=== PATIENT | female | born 1965 | race Caucasian/White ===

== ENCOUNTER 2017-10-09 11:45 | Outpatient (CLI) | payer MEDICARE | END 2017-10-09 11:46 | disposition home or self-care (01) | LOC: BICMAMMO 11:45 | PROVIDERS: ATTEND Family Medicine | DX: Z12.31 Encounter for screening mammogram for malignant neoplasm of breast (principal) | CPT/HCPCS: 77063; 77067 ==

== ENCOUNTER 2017-10-11 16:14 | Inpatient (IN) | payer MEDICARE ==
[2017-10-11] MEDS ORDERED: HYDROcodone/Acetaminophen 7.5/325 mg Tablet ONE (17:38)
[2017-10-11] MEDS ORDERED: Albuterol Sulfate 2.5 mg/3 ml Neb ONE (17:40)
--- NOTE | 2017-10-11 19:22 | CT ---
CT ANGIOGRAM OF THE CHEST 10/11/17 HISTORY: Chest pain. Cough and fever. COMPARISON: None. TECHNIQUE: CT angiogram of the chest is performed in the axial plane. Three dimensional reformatted images are s ubmitted for interpretation. FINDINGS: Ascending thoracic aorta is mildly prominent measuring 4.3 x 4.0 cm. No periaortic fat stranding. No mediastinal mass, lymphadenopathy or hematoma. Normal heart size. No significant pericardial fluid. T he visualized solid organs are unremarkable. There are patchy interstitial and ground glass opacities throughout the lung parenchyma. More focal c onsolidation involving the left lower lobe and right lower lobe are noted which may represent subsegm ental atelectasis or possible pneumonia. There is no pleural effusion or pneumothorax. Trachea and ce ntral bronchi are patent. There are no lytic or blastic lesions with regard to the osseous structures. Adequate contrast opacification of the pulmonary arterial system to the level of segmental arteries. No filling defect to suggest thromboembolism. IMPRESSION: 1. No evidence of pulmonary artery embolism to the level of the segmental arteries. 2. Patchy ground glass opacities as well as more focal consolidation throughout the lung parench yma. Correlate for infection/pneumonia versus component of volume overload. Continued surveillance to ensure resolution is recommended. POS: [facility]
[2017-10-11] MEDS ORDERED: Ondansetron HCl/PF 4 MG/2 ML Vial IVP PRN (20:19)
[2017-10-11] MEDS ORDERED: Ondansetron ODT 4 MG TAB SL PRN (20:19)
[2017-10-11] MEDS ORDERED: Acetaminophen 325 MG TAB PO PRN (20:24)
[2017-10-11] MEDS ORDERED: Albuterol Sulfate 2.5 mg/3 ml Neb NEB PRN (20:29)
[2017-10-11] MEDS ORDERED: cefTRIAXone\\ROCEPHIN 2 GM in Sodium Chloride 0.9% 100 ML IVPB SCH (21:00)
[2017-10-11] MEDS ORDERED: Azithromycin 500 MG in Sodium Chloride 0.9% 250 ML 250 ML IVPB SCH (21:30)
[2017-10-11] MEDS: Famotidine/PF 20 mg/2ml Vial SLOW IVP SCH (21:51)
[2017-10-11] MEDS: guaiFENesin ER 600 MG TAB PO SCH (21:51)
[2017-10-11] MEDS: Guaifenesin DM 100-10/5 ML UDCUP PO PRN (21:51)
[2017-10-11] MEDS: Sodium Chloride 0.9% 1,000 ML IV SCH (21:52)
[2017-10-11 22:22] VITALS: BMI 27.2
[2017-10-11] MEDS ORDERED: tiZANidine HCl 4 MG TAB PO SCH (22:45)
[2017-10-11] MEDS ORDERED: Diazepam 2 MG TAB PO SCH (22:45)
[2017-10-12] MEDS: HYDROcodone/Acetaminophen 5/325 mg Tablet PO PRN ×3 (04:18→17:49)
[2017-10-12 05:45] LABS: #Lymphocytes 1.7 thou/uL (1.20-3.40); #Monocytes 0.9 thou/uL (0.11-0.59); #Neutrophils 10.5 thou/uL (1.40-6.50); %Basophils 0.1 % (0.0-1.0); %Eosinophils 0.1 % (0.0-10.0); %Lymphocytes 12.6 % (21.0-51.0); %Monocytes 7.2 % (0.0-10.0); Hemoglobin 13.7 g/dL (12.0-16.0); Mean Corpuscular HGB CONC 33.9 g/dL (32.0-36.0); Mean Corpuscular Hemoglobin 32.1 pg (27.0-31.0); Mean Corpuscular Volume 94.5 fL (78.0-98.0); Mean Platelet Volume 6.2 fL (7.4-10.4); Platelet Count 307 thou/uL (130-400); RBC Distribution Width 11.5 % (11.5-14.5); Red Blood Cell (RBC) Count 4.29 mill/uL (4.20-5.40); White Blood Cell (WBC) Count 13.2 thou/uL (4.8-10.8)
[2017-10-12 05:57] LABS: Anion Gap 9 mmol/L (10-20); BUN (Urea Nitrogen) 6 mg/dL (7.0-18.7); Calc. Creatinine Clearance 118 mL/min (70-130); Calcium 8.6 mg/dL (7.8-10.44); Carbon Dioxide 27 mmol/L (22-29); Chloride 105 mmol/L (98-107); Estimated GFR-MDRD 90; Glucose 115 mg/dL (70-105); Potassium 3.6 mmol/L (3.5-5.1); Sodium 137 mmol/L (136-145)
[2017-10-12] MEDS ORDERED: Oxymetazoline HCl 0.05% ( 15 ML ) NASAL PRN (08:08)
--- NOTE | 2017-10-12 08:51 | HP ---
DATE OF ADMISSION: 10/11/2017 The patient was seen on 10/11/2017 CHIEF COMPLAINT: Shortness of breath. HISTORY OF PRESENT ILLNESS: This is a 51-year-old white female who has a known history of chronic br onchitis and she has named diagnosis of COPD by herself. She has never seen any waiter/waitress captain or had any pulmonary function testing. She uses a lot of herbal medicines and essential oils for controlli ng her bronchitis. The patient had symptoms started a week ago with shortness of breath, cough with productive sputum and nasal congestion. She has been using essential oils, which according to her wa s not working and she had a fever of 102 a week ago following which she had epistaxis and also she wa s coughing up green sputum sometimes associated with blood, so her advised the patient to go to the ER. The patient came to the ER, she had a thorough evaluation, had a CT of the chest with sydney picion for pulmonary embolism as she was having hypoxia at 4 liters. CTA was negative, but showed si gnificant patchy infiltrates bilaterally and has ground glass opacities throughout the lung parenchym a. The patient denies having any chest pain. No nausea, no vomiting, no diarrhea, no constipation. No history of any sick contacts. PAST MEDICAL HISTORY: 1. Multiple allergies. 2. Chronic bronchitis. 3. History of pneumonia, multiple times. 4. History of COPD, which she termed herself. PAST SURGICAL HISTORY: None. SOCIAL HISTORY: The patient has a history of smoking, but she has stopped smoking 13 years ago. She occasionally smokes socially according to her. No history of alcohol, no history of illicit drug us e. FAMILY HISTORY: No significant family history of coronary artery disease. Her paternal grandfather at young age around 30 with some lung disorder, which she is not aware of. ALLERGIES: ASPIRIN, MOLD, NEUROMUSCULAR BLOCKERS and STEROIDS. HOME MEDICATIONS: The patient is on diazepam 2 mg p.o. b.i.d. and Tizanidine 4 mg p.o. t.i.d. REVIEW OF SYSTEMS: All 12 systems are reviewed with the patient thoroughly and found to be negative at this time. Systems reviewed are HEENT, CVS, PAINT PREP TECHNICIAN, respiratory, GI, , musculoskeletal, skin and i ntegumentary, psychiatric. PHYSICAL EXAMINATION: PSYCHIATRIC: The patient has severe anxiety disorder and she has been crying a lot while talking, bu t otherwise no suicidal ideation, no francisco was noted. LABORATORY DATA: WBC 13.2, hemoglobin is 13.7, hematocrit is 40.5, platelets 307. Sodium 137, potas sium is 3.6, chloride is 105, BUN is 6, creatinine 0.69. IMAGING: CT of the chest was showing an evidence of patchy opacities, ground glass appearance bilate rally throughout the parenchyma, but otherwise no evidence of any PE was noted. ASSESSMENT: 1. Acute chronic bronchitis. 2. Acute hypoxic respiratory failure. 3. Acute bilateral pneumonia. 4. Anxiety disorder. PLAN: 1. Plan is to closely monitor this patient. We will start the patient on empiric antibiotic with Le vofloxacin 750 mg IV daily. We will get the sputum cultures and blood cultures at this time and star t the patient on albuterol nebulizer treatments every 2 hours and DuoNeb every 4 hours as scheduled. Plan to consult Pulmonary as the patient has a lot of pulmonary symptoms and she calls them a COPD w ith no evidence of any pulmonary function testing in the past. Her smoking history has also been destinee y small, at least 10-15 years. She quit smoking 13 years ago. 2. The patient had a normal BNP. There is no evidence of any congestive heart failure. We will get a 2D echo. 3. Patient has severe anxiety disorder. She takes Valium. We will continue with the Valium twice a day. 4. Deep venous thrombosis prophylaxis. Lovenox 40 mg subcu daily. I spent 75 minutes with this patient.
[2017-10-12] MEDS: guaiFENesin ER 600 MG TAB PO SCH ×2 (09:25→20:41)
[2017-10-12] MEDS: Enoxaparin Sodium 40 MG/0.4 ML SYRINGE SC SCH (09:25)
[2017-10-12] MEDS: tiZANidine HCl 4 MG TAB PO SCH ×3 (09:25→20:42)
[2017-10-12] MEDS: Diazepam 2 MG TAB PO SCH ×2 (09:25→20:41)
[2017-10-12] MEDS: Famotidine/PF 20 mg/2ml Vial SLOW IVP SCH ×2 (09:25→21:04)
[2017-10-12] MEDS: Fluticasone Propionate Nasal Spray 16 gm Bottle NASAL SCH ×2 (09:41→20:40)
[2017-10-12] MEDS: Sodium Chloride 0.9% 1,000 ML IV SCH ×2 (09:41→11:52)
--- NOTE | 2017-10-12 14:41 | PDOC.PN ---
- Subjective Encounter Start Date: 10/12/17 Encounter Start Time: 13:00 Patient is seen today, alert and oriented, She feels is getting better, She still stuffed up, very emotional, with high level of anxiety. - Objective Resuscitation Status: Resuscitation Status FULL:Full Resuscitation MAR Reviewed: Yes Vital Signs & Weight: Vital Signs (12 hours) Temp Pulse Pulse Resp BP BP BP 10/12/17 12:00 98.3 F 84 20 131/79 10/12/17 11:07 116/85 10/12/17 10:38 85 16 10/12/17 10:10 101 H 156/62 H 10/12/17 08:00 98.9 F 87 20 10/12/17 06:35 10/12/17 06:33 95 18 10/12/17 04:00 97.9 F 84 14 141/94 H Pulse Ox 10/12/17 12:00 95 10/12/17 11:07 10/12/17 10:38 95 10/12/17 10:10 10/12/17 08:00 94 L 10/12/17 06:35 96 10/12/17 06:33 96 10/12/17 04:00 96 I&O: 10/11/17 10/12/17 10/13/17 06:59 06:59 06:59 Intake Total 990 360 Output Total 550 Balance 440 360 Result Diagrams: 10/12/17 05:16 10/12/17 05:16 Radiology Reviewed by me: Yes Phys Exam - Physical Examination HEENT: PERRLA, moist MMs Neck: no nodes, no JVD Respiratory: no rales, wheezing present lower base fine rales present bilaterally Cardiovascular: RRR, no significant murmur Gastrointestinal: soft, non-tender Musculoskeletal: no edema, pulses present Neurological: non-focal, normal sensation Lymphatic: no nodes Psychiatric: normal affect, A&O x 3 Dx/Plan (1) Pneumonia Code(s): J18.9 - PNEUMONIA, UNSPECIFIED ORGANISM Status: Acute Comment: Elevated WBC, will continue with levaquine, pt is improving with nebs , she continuos to be on oxygen. Consulted Dr. Heredia, (2) Acute respiratory failure with hypoxia Code(s): J96.01 - ACUTE RESPIRATORY FAILURE WITH HYPOXIA Status: Acute Comment: Pt says she has COPD was never diagosed with PFT, pt has a short smoking historty, likely she has Chronci bronchitis/bronchiolitis with recurrent Pneumonias as 3 yeard Old. She is oxygen depnedent now with possible viral/ bactrial pneumonia (3) Acute sinusitis, unspecified Code(s): J01.90 - ACUTE SINUSITIS, UNSPECIFIED Status: Acute Comment: Imprpoving with nasonex and Afrin. (4) Anxiety Code(s): F41.9 - ANXIETY DISORDER, UNSPECIFIED Status: Acute Comment: Pt is on Valium BID, will continue. - Plan cont current plan of care, continue antibiotics, PT/OT, respiratory therapy, incentive spirometry, out of bed/ambulate, DVT proph w/lovenox * . Review of Systems - Review of Systems Constitutional: negative: fever, chills, sweats, weakness, malaise, other Eyes: negative: Pain, Vision Change, Conjunctivae Inflammation, Eyelid Inflammation, Redness, Other ENT: negative: Ear Pain, Ear Discharge, Nose Pain, Nose Discharge, Nose Congestion, Mouth Pain, Mouth Swelling, Throat Pain, Throat Swelling, Other Respiratory: negative: Cough, Dry, Shortness of Breath, Hemoptysis, SOB with Excertion, Pleuritic Pain, Sputum, Wheezing Cardiovascular: negative: chest pain, palpitations, orthopnea, paroxysmal nocturnal dyspnea, edema, light headedness, other Gastrointestinal: negative: Nausea, Vomiting, Abdominal Pain, Diarrhea, Constipation, Melena, Hematochezia, Other Genitourinary: negative: Dysuria, Frequency, Incontinence, Hematuria, Retention , Other - Medications/Allergies Allergies/Adverse Reactions: Allergies Allergy/AdvReac Type Severity Reaction Status Date / Time aspirin Allergy Verified 10/11/17 20:11 mold Allergy Verified 10/11/17 22:07 Neuromuscular Blockers, Allergy Verified 10/11/17 20:17 Steroidal NSAIDS (Non-Steroidal Allergy Verified 10/11/17 22:07 Anti-Inflamma Medications: Current Medications Acetaminophen (Tylenol) 650 mg PO Q4H PRN PRN Reason: Headache/Fever or Pain Hydrocodone Bitart/Acetaminophen ([place] 5/325) 1 tab PO Q4H PRN PRN Reason: Moderate Pain (4-6) Last Admin: 10/12/17 11:48 Dose: 1 tab Albuterol Sulfate (Ventolin) 2.5 mg NEB Q2H PRN PRN Reason: Wheezing Albuterol/Ipratropium (Duoneb) 3 ml NEB [id number] [facility] Last Admin: 10/12/17 10:38 Dose: 3 ml Diazepam (Valium) 2 mg PO BID [facility] Last Admin: 10/12/17 09:25 Dose: 2 mg Enoxaparin Sodium (Lovenox) 40 mg SC 0900 [facility] Last Admin: 10/12/17 09:25 Dose: 40 mg Famotidine (Pepcid) 20 mg SLOW IVP Q12HR [facility] Last Admin: 10/12/17 09:25 Dose: 20 mg Fluticasone Propionate (Flonase Nasal [place]) 0 gm NASAL BID [facility] Last Admin: 10/12/17 09:41 Dose: 1 spr Guaifenesin (Mucinex) 1,200 mg PO Q12HR [facility] Last Admin: 10/12/17 09:25 Dose: 1,200 mg Guaifenesin/Dextromethorphan (Robitussin Dm) 15 ml PO Q4H PRN PRN Reason: Cough Last Admin: 10/11/17 21:51 Dose: 15 ml Levofloxacin 750 mg/ Device 150 mls @ 100 mls/hr IVPB Q24HR [facility] Last Admin: 10/11/17 21:52 Dose: 150 mls Sodium Chloride (Normal Saline 0.9%) 1,000 mls @ 75 mls/hr IV .[id number] [facility] Last Admin: 10/12/17 11:52 Dose: 1,000 mls Oxymetazoline HCl (Oxymetazoline Hcl) 0 sprays NASAL BID PRN PRN Reason: Nasal Congestion Sodium Chloride (Flush - Normal Saline) 10 ml IVF Q12HR [facility] Last Admin: 10/12/17 09:27 Dose: 10 ml Sodium Chloride (Flush - Normal Saline) 10 ml IVF PRN PRN PRN Reason: Saline Flush Tizanidine HCl (Zanaflex) 4 mg PO TID [facility] Last Admin: 10/12/17 14:19 Dose: 4 mg
[2017-10-12 16:23] LABS: HIV (1/2) Antibody/Antigen Non-Reactive (NonReactive); HIV 1/2 INDEX 0.12 S/CO (<1.00)
[2017-10-12] MEDS: Budesonide 0.5 MG/2 ML NEB INH SCH (18:40)
--- NOTE | 2017-10-12 23:11 | CON ---
DATE OF CONSULTATION: 10/12/2017 Ms. Patiño is a 51-year-old female who has been having breathing difficulty for a couple weeks. She finally came to the hospital and was subsequently admitted. She said she was told many years ago that she had chronic bronchitis, but when I reviewed the definition of chronic bronchitis, she quickly told me that she did not fit that definition. She is a former smoker, but probably did not smoke more than a total of 10 years intermittently. She says she is able to manage her breathing issues normally with aromatherapy. She is really not interested in taking nebulized treatments at home or any inhaled medicines that she had not have to. PAST MEDICAL HISTORY: Remarkable for pneumonia in the past. SOCIAL HISTORY: As mentioned, she quit smoking. She did not use drugs or alcohol. FAMILY HISTORY: Positive for vascular disease. She said she had a great grandfather at a young age with some type of lung disorder. He apparently suddenly. She does not have a diagnosis to go with that event. ALLERGIES: She reports allergies to ASPIRIN, NEUROMUSCULAR BLOCKERS and STEROIDS. Takes tizanidine, Valium at home. REVIEW OF SYSTEMS: 10 point review of systems completed, otherwise negative. PHYSICAL EXAMINATION: GENERAL: 51 year old female complains of difficulty breathing VITAL SIGNS: She is afebrile, heart rate is 91, respiratory rate is 18, oximetry is 95 on room air, blood pressure 156/89. HEENT: Pupils are equal. Sclerae is anicteric. She is wearing sunglasses in the room, says she is light sensitive. NECK: Supple, no lymphadenopathy. LUNGS: Remarkable for diffuse coarse wheezes. HEART: Regular rhythm. S1 and S2 are normal. ABDOMEN: Soft and nontender. EXTREMITIES: Without clubbing, cyanosis, or edema. LABORATORY AND X-RAY FINDINGS: Chest radiograph is normal. Chest CT shows very faint patchy ground glass infiltrates that are very small. IMPRESSION: 1. Asthmatic bronchitis. 2. Abnormal CT, obviously a bronchitis or an infectious process could be responsible for this. I will order an HIV for thoroughness sake and an antineutrophil cytoplasmic antibody panel and a screening antinuclear antibody. I doubt this is a vasculitis. I suspect, she just has asthmatic bronchitis and the CT findings are incidental. I would recommend as I explained to her repeating a CT in 2-3 months without contrast just to make sure she does not have something that is progressive. It is unlikely that her bronchospasm will improve without steroids or nebulizer treatments. I will order inhaled steroids for now since she claims to be allergic to STEROIDS. Hopefully, we will see some improvement over the next few days. This is a 70-minute consult, greater than 50% of the time was spent on unit with coordinating care and reviewing records. PIA
[2017-10-13] MEDS: HYDROcodone/Acetaminophen 5/325 mg Tablet PO PRN ×3 (05:48→18:15)
[2017-10-13] MEDS: Sodium Chloride 0.9% 1,000 ML IV SCH ×2 (05:55→23:16)
[2017-10-13] MEDS: Budesonide 0.5 MG/2 ML NEB INH SCH ×3 (06:44→19:14)
[2017-10-13] MEDS: Famotidine/PF 20 mg/2ml Vial SLOW IVP SCH (09:00)
[2017-10-13] MEDS: tiZANidine HCl 4 MG TAB PO SCH ×3 (09:09→20:15)
[2017-10-13] MEDS: guaiFENesin ER 600 MG TAB PO SCH ×2 (09:09→20:15)
[2017-10-13] MEDS: Guaifenesin DM 100-10/5 ML UDCUP PO PRN (09:10)
[2017-10-13] MEDS: Diazepam 2 MG TAB PO SCH ×2 (09:10→20:15)
[2017-10-13] MEDS: Enoxaparin Sodium 40 MG/0.4 ML SYRINGE SC SCH (09:10)
[2017-10-13] MEDS: Fluticasone Propionate Nasal Spray 16 gm Bottle NASAL SCH ×2 (10:59→20:13)
[2017-10-13] MEDS ORDERED: methylPREDNISolone Sod Succ/PF 125 MG/2 ML VIAL IVP SCH (11:30)
[2017-10-13] MEDS ORDERED: Magnesium Sulfate 3 GM in Sodium Chloride 0.9% 100 ML IVPB SCH (11:30)
[2017-10-13 12:03] LABS: #Basophils 0.1 thou/uL (0.0-0.2); #Lymphocytes 1.8 thou/uL (1.20-3.40); #Monocytes 0.7 thou/uL (0.11-0.59); #Neutrophils 12.4 thou/uL (1.40-6.50); %Basophils 0.4 % (0.0-1.0); %Eosinophils 0.2 % (0.0-10.0); %Lymphocytes 12.1 % (21.0-51.0); %Monocytes 4.7 % (0.0-10.0); %Neutrophils 82.7 % (42.0-75.0); Hemoglobin 14.2 g/dL (12.0-16.0); Mean Corpuscular HGB CONC 33.6 g/dL (32.0-36.0); Mean Corpuscular Hemoglobin 31.7 pg (27.0-31.0); Mean Corpuscular Volume 94.2 fL (78.0-98.0); Mean Platelet Volume 6.5 fL (7.4-10.4); Platelet Count 311 thou/uL (130-400); RBC Distribution Width 11.5 % (11.5-14.5); Red Blood Cell (RBC) Count 4.48 mill/uL (4.20-5.40)
--- NOTE | 2017-10-13 12:15 | PRG ---
DATE OF SERVICE: 10/13/2017 SUBJECTIVE: Lynda Patiño says she feels worse this morning. She had to call for p.r.n. nebulizer tr eatment this morning. She was tearful actually when I saw her. OBJECTIVE: GENERAL: She was not in distress, however. VITAL SIGNS: She is afebrile with a temperature of 99.4, heart rates in the 80s, respiratory rate 16 , oximetry is 93 on 2 liters, blood pressure 158/92. LUNGS: Remarkable for coarse wheezes diffusely. CARDIOVASCULAR: Regular rhythm. ABDOMEN: Soft. LABORATORY DATA: White count 15, hemoglobin 14.2, platelets 311,000. Electrolytes are normal. IMPRESSION: Asthmatic bronchitis. We discussed her reported steroid allergy. She says she turns re d and does not like how she feels on steroids, but did not really have an allergic reaction. I have explained that there is no way around giving her steroids. We will try with 1 dose of 125 mg of Medr ol and 30 g of magnesium. Hopefully, by the end of the day, her bronchospasm is improved.
[2017-10-13 12:22] LABS: Anion Gap 13 mmol/L (10-20); BUN (Urea Nitrogen) 5 mg/dL (7.0-18.7); Calc. Creatinine Clearance 112 mL/min (70-130); Calcium 9.1 mg/dL (7.8-10.44); Carbon Dioxide 24 mmol/L (22-29); Chloride 104 mmol/L (98-107); Estimated GFR-MDRD 84; Glucose 121 mg/dL (70-105); Potassium 3.4 mmol/L (3.5-5.1); Sodium 138 mmol/L (136-145)
--- NOTE | 2017-10-13 15:11 | PDOC.PN ---
- Subjective Encounter Start Date: 10/13/17 Encounter Start Time: 13:00 Patient is seen today, alert and oriented. No other concern snoted. Pt feeling better, worried about Starting her on Inhaled Steroids. - Objective Resuscitation Status: Resuscitation Status FULL:Full Resuscitation MAR Reviewed: Yes Vital Signs & Weight: Vital Signs (12 hours) Temp Pulse Pulse Resp BP BP Pulse Ox 10/13/17 14:21 89 18 95 10/13/17 14:20 85 133/54 L 10/13/17 10:08 72 20 93 L 10/13/17 10:04 72 20 93 L 10/13/17 09:24 99.4 F 85 16 10/13/17 09:16 99.3 F 10/13/17 07:47 99.4 F 85 16 158/92 H 92 L 10/13/17 05:22 98 20 10/13/17 04:00 98.2 F 78 15 147/82 H 94 L Weight Weight 170 lb I&O: 10/12/17 10/13/17 10/14/17 06:59 06:59 06:59 Intake Total 990 1590 Output Total 550 600 Balance 440 990 Result Diagrams: 10/13/17 11:35 10/13/17 11:35 Radiology Reviewed by me: Yes Phys Exam - Physical Examination HEENT: PERRLA, moist MMs Neck: no nodes, no JVD Respiratory: no wheezing, no rales Cardiovascular: RRR, no significant murmur Gastrointestinal: soft, non-tender Musculoskeletal: no edema, pulses present Neurological: non-focal, normal sensation Lymphatic: no nodes Psychiatric: normal affect, A&O x 3 Dx/Plan (1) Pneumonia Code(s): J18.9 - PNEUMONIA, UNSPECIFIED ORGANISM Status: Acute Comment: Elevated WBC, will continue with levaquine, pt is improving with nebs , she continuos to be on oxygen. Consulted Dr. Heredia,ordered Inhaled Steroids, planned Repeat chest xray for any worsein. Josiah is Asthmtic bronchitis per pulmonary. (2) Acute respiratory failure with hypoxia Code(s): J96.01 - ACUTE RESPIRATORY FAILURE WITH HYPOXIA Status: Acute Comment: Some improvement noted, pt is on 2 Liter NC. will cotninue with nebs. (3) Acute sinusitis, unspecified Code(s): J01.90 - ACUTE SINUSITIS, UNSPECIFIED Status: Acute Comment: Imprpoving with nasonex and Afrin. (4) Anxiety Code(s): F41.9 - ANXIETY DISORDER, UNSPECIFIED Status: Acute Comment: Pt is on Valium BID, will continue. - Plan cont current plan of care, continue antibiotics, PT/OT, drug abuse social worker, respiratory therapy, incentive spirometry, DVT proph w/lovenox * . Review of Systems - Review of Systems Eyes: negative: Pain, Vision Change, Conjunctivae Inflammation, Eyelid Inflammation, Redness, Other ENT: negative: Ear Pain, Ear Discharge, Nose Pain, Nose Discharge, Nose Congestion, Mouth Pain, Mouth Swelling, Throat Pain, Throat Swelling, Other Respiratory: Cough, Shortness of Breath, SOB with Excertion, Wheezing. negative : Dry, Hemoptysis, Pleuritic Pain, Sputum Cardiovascular: negative: chest pain, palpitations, orthopnea, paroxysmal nocturnal dyspnea, edema, light headedness, other Gastrointestinal: negative: Nausea, Vomiting, Abdominal Pain, Diarrhea, Constipation, Melena, Hematochezia, Other Musculoskeletal: negative: Neck Pain, Shoulder Pain, Arm Pain, Back Pain, Hand Pain, Leg Pain, Foot Pain, Other - Medications/Allergies Allergies/Adverse Reactions: Allergies Allergy/AdvReac Type Severity Reaction Status Date / Time aspirin Allergy Verified 10/11/17 20:11 mold Allergy Verified 10/11/17 22:07 Neuromuscular Blockers, Allergy Verified 10/11/17 20:17 Steroidal NSAIDS (Non-Steroidal Allergy Verified 10/11/17 22:07 Anti-Inflamma Medications: Current Medications Acetaminophen (Tylenol) 650 mg PO Q4H PRN PRN Reason: Headache/Fever or Pain Hydrocodone Bitart/Acetaminophen ([place] 5/325) 1 tab PO Q4H PRN PRN Reason: Moderate Pain (4-6) Last Admin: 10/13/17 10:57 Dose: 1 tab Albuterol Sulfate (Ventolin) 2.5 mg NEB Q2H PRN PRN Reason: Wheezing Last Admin: 10/13/17 05:22 Dose: 2.5 mg Albuterol/Ipratropium (Duoneb) 3 ml NEB [id number] [facility] Last Admin: 10/13/17 14:21 Dose: 3 ml Budesonide (Pulmicort Neb Solution) 0.5 mg INH BID-RT [facility] Last Admin: 10/13/17 10:08 Dose: 0.5 mg Diazepam (Valium) 2 mg PO BID [facility] Last Admin: 10/13/17 09:10 Dose: 2 mg Enoxaparin Sodium (Lovenox) 40 mg SC 0900 [facility] Last Admin: 10/13/17 09:10 Dose: 40 mg Famotidine (Pepcid) 20 mg SLOW IVP Q12HR [facility] Last Admin: 10/12/17 21:04 Dose: 20 mg Fluticasone Propionate (Flonase Nasal [place]) 0 gm NASAL BID [facility] Last Admin: 10/13/17 10:59 Dose: 2 spr Guaifenesin (Mucinex) 1,200 mg PO Q12HR [facility] Last Admin: 10/13/17 09:09 Dose: 1,200 mg Guaifenesin/Dextromethorphan (Robitussin Dm) 15 ml PO Q4H PRN PRN Reason: Cough Last Admin: 10/13/17 09:10 Dose: 15 ml Levofloxacin 750 mg/ Device 150 mls @ 100 mls/hr IVPB Q24HR [facility] Last Admin: 10/12/17 20:42 Dose: 150 mls Sodium Chloride (Normal Saline 0.9%) 1,000 mls @ 75 mls/hr IV .[id number] [facility] Last Admin: 10/13/17 05:55 Dose: 1,000 mls Oxymetazoline HCl (Oxymetazoline Hcl) 0 sprays NASAL BID PRN PRN Reason: Nasal Congestion Sodium Chloride (Flush - Normal Saline) 10 ml IVF Q12HR [facility] Last Admin: 10/13/17 14:32 Dose: Not Given Sodium Chloride (Flush - Normal Saline) 10 ml IVF PRN PRN PRN Reason: Saline Flush Tizanidine HCl (Zanaflex) 4 mg PO TID [facility] Last Admin: 10/13/17 09:09 Dose: 4 mg
[2017-10-13] MEDS: Famotidine 20 MG TAB PO SCH (20:14)
[2017-10-13 22:24] LABS: ANA Symphony (Qualitative) Negative (Negative); dsDNA IgG Antibody 0.8 IU/mL (<10 Negative)
[2017-10-14] MEDS: Budesonide 0.5 MG/2 ML NEB INH SCH ×2 (06:30→18:45)
[2017-10-14] MEDS: Diazepam 2 MG TAB PO SCH ×2 (08:11→20:15)
[2017-10-14] MEDS: HYDROcodone/Acetaminophen 5/325 mg Tablet PO PRN ×4 (08:11→22:05)
[2017-10-14] MEDS: Famotidine 20 MG TAB PO SCH ×2 (08:12→20:15)
[2017-10-14] MEDS: guaiFENesin ER 600 MG TAB PO SCH ×2 (08:12→20:14)
[2017-10-14] MEDS: tiZANidine HCl 4 MG TAB PO SCH ×3 (09:18→22:05)
[2017-10-14] MEDS: Enoxaparin Sodium 40 MG/0.4 ML SYRINGE SC SCH (09:18)
[2017-10-14] MEDS: Fluticasone Propionate Nasal Spray 16 gm Bottle NASAL SCH ×2 (09:18→20:15)
[2017-10-14] MEDS: Sodium Chloride 0.9% 1,000 ML IV SCH (12:28)
--- NOTE | 2017-10-14 17:52 | PRG ---
DATE OF SERVICE: 10/14/2017 SUBJECTIVE: This morning she is better. She is less short of breath, no associated coughing or whee zing. OBJECTIVE: VITAL SIGNS: 94%, sating 2 liters, temperature 98, pulse 105, and blood pressure 140/79. CHEST: Bilateral wheezing. CARDIAC: Normal S1 and S2. No gallops. ABDOMEN: Soft. No masses. IMPRESSION: Asthmatic bronchitis, somewhat improved. PLAN: Continue aggressive neb treatments, Symbicort, Dulera, empiric antibiotics. We will follow.
--- NOTE | 2017-10-14 18:39 | PDOC.PN ---
- Subjective Encounter Start Date: 10/14/17 Encounter Start Time: 11:00 Patient seen and examined for respiratory failure. Cough with mild production + . No overnight events - Objective Resuscitation Status: Resuscitation Status FULL:Full Resuscitation MAR Reviewed: Yes Vital Signs & Weight: Vital Signs (12 hours) Temp Pulse Resp BP BP Pulse Ox 10/14/17 15:10 99.1 F 88 18 129/81 93 L 10/14/17 11:45 97.3 F L 90 18 112/68 96 10/14/17 11:23 93 12 10/14/17 09:15 18 147/89 H 10/14/17 08:10 98.7 F 104 H 18 192/93 H 94 L Weight Weight 169 lb 6.4 oz I&O: 10/13/17 10/14/17 10/15/17 06:59 06:59 06:59 Intake Total 1590 Output Total 600 1000 Balance 990 -1000 Result Diagrams: 10/13/17 11:35 10/15/17 05:40 EKG Reviewed by me: Yes (Tele SR) Phys Exam - Physical Examination Constitutional: NAD Respiratory: no rales, no rhonchi, wheezing present (scat) Cardiovascular: RRR, no rub Gastrointestinal: soft, non-tender, positive bowel sounds Musculoskeletal: no edema Neurological: moves all 4 limbs Dx/Plan - Plan DVT proph w/lovenox, DVT proph w/SCDs IMPRESSION: Acute Hypoxic Resp failure Asthmatic Bronchitis - suspected Pneumonia ?Pneumococcal Hypokalemia Anxiety Former smoker PLAN: Cont Levaquin Cont Nebs Cont current home meds as below AM labs Await Medical bed DC IVF Review of Systems - Review of Systems Respiratory: Cough, Dry, Wheezing Cardiovascular: negative: chest pain, palpitations, orthopnea, paroxysmal nocturnal dyspnea, edema, light headedness, other Gastrointestinal: negative: Nausea, Vomiting, Abdominal Pain, Diarrhea, Constipation, Melena, Hematochezia, Other - Medications/Allergies Allergies/Adverse Reactions: Allergies Allergy/AdvReac Type Severity Reaction Status Date / Time aspirin Allergy Verified 10/11/17 20:11 mold Allergy Verified 10/11/17 22:07 Neuromuscular Blockers, Allergy Verified 10/11/17 20:17 Steroidal NSAIDS (Non-Steroidal Allergy Verified 10/11/17 22:07 Anti-Inflamma Medications: Current Medications Acetaminophen (Tylenol) 650 mg PO Q4H PRN PRN Reason: Headache/Fever or Pain Hydrocodone Bitart/Acetaminophen ([place] 5/325) 1 tab PO Q4H PRN PRN Reason: Moderate Pain (4-6) Last Admin: 10/14/17 17:59 Dose: 1 tab Albuterol Sulfate (Ventolin) 2.5 mg NEB Q2H PRN PRN Reason: Wheezing Last Admin: 10/13/17 05:22 Dose: 2.5 mg Albuterol/Ipratropium (Duoneb) 3 ml NEB [id number] [facility] Last Admin: 10/14/17 18:14 Dose: Not Given Budesonide (Pulmicort Neb Solution) 0.5 mg INH BID-RT [facility] Last Admin: 10/14/17 06:30 Dose: 0.5 mg Diazepam (Valium) 2 mg PO BID [facility] Last Admin: 10/14/17 08:11 Dose: 2 mg Enoxaparin Sodium (Lovenox) 40 mg SC 0900 [facility] Last Admin: 10/14/17 09:18 Dose: 40 mg Famotidine (Pepcid) 20 mg PO BID [facility] Last Admin: 10/14/17 08:12 Dose: 20 mg Fluticasone Propionate (Flonase Nasal [place]) 0 gm NASAL BID [facility] Last Admin: 10/14/17 09:18 Dose: 1 spr Guaifenesin (Mucinex) 1,200 mg PO Q12HR [facility] Last Admin: 10/14/17 08:12 Dose: 1,200 mg Guaifenesin/Dextromethorphan (Robitussin Dm) 15 ml PO Q4H PRN PRN Reason: Cough Last Admin: 10/13/17 09:10 Dose: 15 ml Levofloxacin 750 mg/ Device 150 mls @ 100 mls/hr IVPB Q24HR [facility] Last Admin: 10/13/17 20:17 Dose: 150 mls Sodium Chloride (Normal Saline 0.9%) 1,000 mls @ 75 mls/hr IV .[id number] [facility] Last Admin: 10/14/17 12:28 Dose: 1,000 mls Mometasone Furoate/Formoterol Fumar (Dulera 200 Mcg/5 Mcg Inhaler) 2 puff INH BID-RT [facility] Oxymetazoline HCl (Oxymetazoline Hcl) 0 sprays NASAL BID PRN PRN Reason: Nasal Congestion Sodium Chloride (Flush - Normal Saline) 10 ml IVF Q12HR [facility] Last Admin: 10/14/17 09:20 Dose: Not Given Sodium Chloride (Flush - Normal Saline) 10 ml IVF PRN PRN PRN Reason: Saline Flush Tizanidine HCl (Zanaflex) 4 mg PO TID [facility] Last Admin: 10/14/17 15:13 Dose: 4 mg
[2017-10-14] MEDS ORDERED: cloNIDine 0.1 MG TAB PO PRN (18:42)
[2017-10-14] MEDS: Mometasone/Formoterol 120 PUFF INHALER INH SCH (18:47)
[2017-10-15] MEDS: HYDROcodone/Acetaminophen 5/325 mg Tablet PO PRN ×5 (05:38→22:15)
[2017-10-15] MEDS: tiZANidine HCl 4 MG TAB PO SCH ×3 (05:40→22:09)
[2017-10-15] MEDS: Budesonide 0.5 MG/2 ML NEB INH SCH ×2 (06:46→19:06)
[2017-10-15 06:50] LABS: Anion Gap 11 mmol/L (10-20); BUN (Urea Nitrogen) 7 mg/dL (7.0-18.7); Calc. Creatinine Clearance 122 mL/min (70-130); Calcium 8.8 mg/dL (7.8-10.44); Carbon Dioxide 23 mmol/L (22-29); Chloride 106 mmol/L (98-107); Estimated GFR-MDRD Greater than 90; Glucose 88 mg/dL (70-105); Magnesium 1.8 mg/dL (1.6-2.6); Potassium 3.6 mmol/L (3.5-5.1); Sodium 136 mmol/L (136-145)
[2017-10-15] MEDS: Mometasone/Formoterol 120 PUFF INHALER INH SCH ×2 (07:19→19:04)
[2017-10-15] MEDS: guaiFENesin ER 600 MG TAB PO SCH ×2 (08:35→21:07)
[2017-10-15] MEDS: Diazepam 2 MG TAB PO SCH ×2 (08:36→21:06)
[2017-10-15] MEDS: Enoxaparin Sodium 40 MG/0.4 ML SYRINGE SC SCH (08:36)
[2017-10-15] MEDS: Famotidine 20 MG TAB PO SCH ×2 (08:36→21:06)
[2017-10-15] MEDS: Fluticasone Propionate Nasal Spray 16 gm Bottle NASAL SCH ×2 (08:37→22:09)
--- NOTE | 2017-10-15 13:43 | PRG ---
DATE OF SERVICE: 10/15/2017 SUBJECTIVE: This morning, she is better. She is still coughing and wheezing. I offered a dose of prednisone. She declined. OBJECTIVE: Vital signs: Sats 90% room air, respiration 16, temperature 98, pulse 79, blood pressure 120/70. CHEST: Bilateral wheezing and rhonchi. CARDIAC: Normal S1, S2. No gallops. ABDOMEN: Soft, no masses. IMPRESSION: COPD/ASTHMA exacerbation, bronchitis. PLAN: Continue Pulmicort, neb treatments, supportive care. INHAILED steroids. We will follow. NAZANIND
--- NOTE | 2017-10-15 16:16 | PDOC.PN ---
- Subjective Encounter Start Date: 10/15/17 Encounter Start Time: 09:45 Patient seen and examined for Resp failure. Cough with scanty production. No other complaints. No overnight events - Objective Resuscitation Status: Resuscitation Status FULL:Full Resuscitation MAR Reviewed: Yes Vital Signs & Weight: Vital Signs (12 hours) Temp Pulse Resp BP BP Pulse Ox 10/15/17 15:31 92 16 94 L 10/15/17 12:00 99.8 F H 95 18 147/98 H 92 L 10/15/17 11:57 80 18 96 10/15/17 08:00 98.5 F 79 16 120/78 95 10/15/17 07:19 93 L 10/15/17 06:55 93 L 10/15/17 06:53 83 18 93 L 10/15/17 06:46 83 18 93 L Weight Weight 169 lb 6.4 oz I&O: 10/14/17 10/15/17 10/16/17 06:59 06:59 06:59 Intake Total 1030 Output Total 1000 Balance -1000 1030 Result Diagrams: 10/13/17 11:35 10/15/17 05:40 Phys Exam - Physical Examination Constitutional: NAD Respiratory: no wheezing, no rales Scat rhonchi Cardiovascular: RRR, no rub Gastrointestinal: soft, non-tender, positive bowel sounds Musculoskeletal: no edema Neurological: moves all 4 limbs Dx/Plan - Plan DVT proph w/SCDs IMPRESSION: Acute Hypoxic Resp failure - improving Asthmatic Bronchitis - suspected Pneumonia ?Pneumococcal - on Levaquin Hypokalemia - replaced Anxiety Former smoker PLAN: Cont Antibiotics and Pulmicort Refused oral steroids Cont Nebs Cont other meds as below Wean O2 Ambulate Review of Systems - Review of Systems Respiratory: Cough, Dry, Sputum. negative: Shortness of Breath, Hemoptysis, SOB with Excertion, Pleuritic Pain, Wheezing Cardiovascular: negative: chest pain, palpitations, orthopnea, paroxysmal nocturnal dyspnea, edema, light headedness, other Gastrointestinal: negative: Nausea, Vomiting, Abdominal Pain, Diarrhea, Constipation, Melena, Hematochezia, Other - Medications/Allergies Allergies/Adverse Reactions: Allergies Allergy/AdvReac Type Severity Reaction Status Date / Time aspirin Allergy Verified 10/11/17 20:11 mold Allergy Verified 10/11/17 22:07 Neuromuscular Blockers, Allergy Verified 10/11/17 20:17 Steroidal NSAIDS (Non-Steroidal Allergy Verified 10/11/17 22:07 Anti-Inflamma Medications: Current Medications Acetaminophen (Tylenol) 650 mg PO Q4H PRN PRN Reason: Headache/Fever or Pain Hydrocodone Bitart/Acetaminophen ([place] 5/325) 1 tab PO Q4H PRN PRN Reason: Moderate Pain (4-6) Last Admin: 10/15/17 13:54 Dose: 1 tab Albuterol Sulfate (Ventolin) 2.5 mg NEB Q2H PRN PRN Reason: Wheezing Last Admin: 10/13/17 05:22 Dose: 2.5 mg Albuterol/Ipratropium (Duoneb) 3 ml NEB [id number] JAMES Last Admin: 10/15/17 15:31 Dose: 3 ml Budesonide (Pulmicort Neb Solution) 0.5 mg INH BID-RT [facility] Last Admin: 10/15/17 06:46 Dose: 0.5 mg Clonidine (Catapres) 0.1 mg PO Q4H PRN PRN Reason: Systolic BP > 180 Diazepam (Valium) 2 mg PO BID [facility] Last Admin: 10/15/17 08:36 Dose: 2 mg Enoxaparin Sodium (Lovenox) 40 mg SC 0900 [facility] Last Admin: 10/15/17 08:36 Dose: 40 mg Famotidine (Pepcid) 20 mg PO BID [facility] Last Admin: 10/15/17 08:36 Dose: 20 mg Fluticasone Propionate (Flonase Nasal [place]) 0 gm NASAL BID [facility] Last Admin: 10/15/17 08:37 Dose: 2 spr Guaifenesin (Mucinex) 1,200 mg PO Q12HR [facility] Last Admin: 10/15/17 08:35 Dose: 1,200 mg Guaifenesin/Dextromethorphan (Robitussin Dm) 15 ml PO Q4H PRN PRN Reason: Cough Last Admin: 10/13/17 09:10 Dose: 15 ml Levofloxacin 750 mg/ Device 150 mls @ 100 mls/hr IVPB Q24HR [facility] Last Admin: 10/14/17 20:16 Dose: 150 mls Mometasone Furoate/Formoterol Fumar (Dulera 200 Mcg/5 Mcg Inhaler) 2 puff INH BID-RT [facility] Last Admin: 10/15/17 07:19 Dose: 2 puff Oxymetazoline HCl (Oxymetazoline Hcl) 0 sprays NASAL BID PRN PRN Reason: Nasal Congestion Sodium Chloride (Flush - Normal Saline) 10 ml IVF Q12HR [facility] Last Admin: 10/15/17 08:36 Dose: 10 ml Sodium Chloride (Flush - Normal Saline) 10 ml IVF PRN PRN PRN Reason: Saline Flush Tizanidine HCl (Zanaflex) 4 mg PO TID [facility] Last Admin: 10/15/17 13:56 Dose: 4 mg
[2017-10-16] MEDS: HYDROcodone/Acetaminophen 5/325 mg Tablet PO PRN ×5 (02:33→20:16)
[2017-10-16] MEDS: Mometasone/Formoterol 120 PUFF INHALER INH SCH ×2 (06:29→19:42)
[2017-10-16] MEDS: Budesonide 0.5 MG/2 ML NEB INH SCH ×2 (06:29→19:43)
[2017-10-16] MEDS: tiZANidine HCl 4 MG TAB PO SCH ×3 (06:51→22:14)
[2017-10-16] MEDS: Famotidine 20 MG TAB PO SCH ×2 (08:08→20:18)
[2017-10-16] MEDS: Diazepam 2 MG TAB PO SCH ×2 (08:08→20:18)
[2017-10-16] MEDS: Fluticasone Propionate Nasal Spray 16 gm Bottle NASAL SCH ×2 (08:08→20:19)
[2017-10-16] MEDS: guaiFENesin ER 600 MG TAB PO SCH ×2 (08:08→20:19)
[2017-10-16] MEDS: Enoxaparin Sodium 40 MG/0.4 ML SYRINGE SC SCH (08:08)
[2017-10-16] MEDS ORDERED: methylPREDNISolone Sod Succ/PF 125 MG/2 ML VIAL IVP SCH (16:15)
[2017-10-16 17:13] LABS: Cytoplasmic (C-ANCA) <1:20 titer (Neg:<1:20); Myeloperoxidase AutoAbs <9.0 U/mL (0.0-9.0); Perinuclear (P-ANCA) <1:20 titer (Neg:<1:20); Proteinase-3 AutoAbs Less than 3.5 U/mL (0.0-3.5)
[2017-10-16] MEDS: ALPRAZolam 0.25 MG TAB PO PRN (19:06)
--- NOTE | 2017-10-16 20:11 | PDOC.PN ---
- Subjective Encounter Start Date: 10/16/17 Encounter Start Time: 09:30 Patient seen and examined for Resp failure. Feels weak. Cough - nonproductive. No overnight events - Objective Resuscitation Status: Resuscitation Status FULL:Full Resuscitation MAR Reviewed: Yes Vital Signs & Weight: Vital Signs (12 hours) Pulse Ox 10/16/17 19:43 92 L 10/16/17 19:42 92 L Weight Weight 169 lb 6.4 oz I&O: 10/15/17 10/16/17 10/17/17 06:59 06:59 06:59 Intake Total 1030 600 Balance 1030 600 Result Diagrams: 10/13/17 11:35 10/15/17 05:40 Phys Exam - Physical Examination Constitutional: NAD Respiratory: no rales Scat rhonchi/wheezing + Cardiovascular: RRR, no rub Gastrointestinal: soft, non-tender, positive bowel sounds Musculoskeletal: no edema Dx/Plan - Plan IMPRESSION: Acute Hypoxic Resp failure - improving Asthmatic Bronchitis - suspected Pneumonia ?Pneumococcal Hypokalemia - replaced Anxiety Former smoker PLAN: Cont Levaquin and Pulmicort Cont Nebs Q4h Cont PT/OT Cont other meds as below Wean O2 Ambulate Review of Systems - Review of Systems Cardiovascular: negative: chest pain, palpitations, orthopnea, paroxysmal nocturnal dyspnea, edema, light headedness, other Gastrointestinal: negative: Nausea, Vomiting, Abdominal Pain, Diarrhea, Constipation, Melena, Hematochezia, Other - Medications/Allergies Allergies/Adverse Reactions: Allergies Allergy/AdvReac Type Severity Reaction Status Date / Time aspirin Allergy Verified 10/11/17 20:11 mold Allergy Verified 10/11/17 22:07 Neuromuscular Blockers, Allergy Verified 10/11/17 20:17 Steroidal NSAIDS (Non-Steroidal Allergy Verified 10/11/17 22:07 Anti-Inflamma Medications: Current Medications Acetaminophen (Tylenol) 650 mg PO Q4H PRN PRN Reason: Headache/Fever or Pain Hydrocodone Bitart/Acetaminophen ([place] 5/325) 1 tab PO Q4H PRN PRN Reason: Moderate Pain (4-6) Last Admin: 10/16/17 16:08 Dose: 1 tab Albuterol Sulfate (Ventolin) 2.5 mg NEB Q2H PRN PRN Reason: Wheezing Last Admin: 10/13/17 05:22 Dose: 2.5 mg Albuterol/Ipratropium (Duoneb) 3 ml NEB [id number] [facility] Last Admin: 10/16/17 19:43 Dose: 3 ml Alprazolam (Xanax) 0.25 mg PO BIDPRN PRN PRN Reason: Anxiety Last Admin: 10/16/17 19:06 Dose: 0.25 mg Budesonide (Pulmicort Neb Solution) 0.5 mg INH BID-RT [facility] Last Admin: 10/16/17 19:43 Dose: 0.5 mg Clonidine (Catapres) 0.1 mg PO Q4H PRN PRN Reason: Systolic BP > 180 Diazepam (Valium) 2 mg PO BID [facility] Last Admin: 10/16/17 08:08 Dose: 2 mg Enoxaparin Sodium (Lovenox) 40 mg SC 0900 [facility] Last Admin: 10/16/17 08:08 Dose: 40 mg Famotidine (Pepcid) 20 mg PO BID [facility] Last Admin: 10/16/17 08:08 Dose: 20 mg Fluticasone Propionate (Flonase Nasal [place]) 0 gm NASAL BID [facility] Last Admin: 10/16/17 08:08 Dose: 1 spr Guaifenesin (Mucinex) 1,200 mg PO Q12HR [facility] Last Admin: 10/16/17 08:08 Dose: 1,200 mg Guaifenesin/Dextromethorphan (Robitussin Dm) 15 ml PO Q4H PRN PRN Reason: Cough Last Admin: 10/13/17 09:10 Dose: 15 ml Levofloxacin (Levaquin) 500 mg PO 2100 [facility] Mometasone Furoate/Formoterol Fumar (Dulera 200 Mcg/5 Mcg Inhaler) 2 puff INH BID-RT [facility] Last Admin: 10/16/17 19:42 Dose: 2 puff Oxymetazoline HCl (Oxymetazoline Hcl) 0 sprays NASAL BID PRN PRN Reason: Nasal Congestion Prednisone (Prednisone) 10 mg PO QAM[facility] Sodium Chloride (Flush - Normal Saline) 10 ml IVF Q12HR [facility] Last Admin: 10/16/17 08:09 Dose: 10 ml Sodium Chloride (Flush - Normal Saline) 10 ml IVF PRN PRN PRN Reason: Saline Flush Tizanidine HCl (Zanaflex) 4 mg PO TID [facility] Last Admin: 10/16/17 14:05 Dose: 4 mg
--- NOTE | 2017-10-17 02:06 | PRG ---
DATE OF SERVICE: 10/16/2017 SUBJECTIVE: She is feeling better, but she is not all the way back to baseline. OBJECTIVE: VITAL SIGNS: She is afebrile. Her oximetry is up to 92 on room air, now heart rate 73, respiratory rate 14, blood pressure 103/68. LUNGS: Still remarkable for wheezes, but she is markedly improved compared to Monday. HEART: Regular rhythm. ABDOMEN: Soft and nontender. LABORATORY DATA: There is no new lab. IMPRESSION AND PLAN: Asthmatic bronchitis, slowly improve and give her one more dose of IV steroids and put her on a low dose of prednisone. Send her to home with a nebulizer hopefully tomorrow and se spr[place] how she does tonight.
[2017-10-17] MEDS: HYDROcodone/Acetaminophen 5/325 mg Tablet PO PRN ×3 (02:42→13:30)
[2017-10-17] MEDS: tiZANidine HCl 4 MG TAB PO SCH ×2 (05:50→13:53)
[2017-10-17] MEDS: Budesonide 0.5 MG/2 ML NEB INH SCH (07:01)
[2017-10-17] MEDS: Mometasone/Formoterol 120 PUFF INHALER INH SCH (07:21)
[2017-10-17] MEDS ORDERED: predniSONE 20 MG TAB PO SCH (08:00)
[2017-10-17] MEDS: Diazepam 2 MG TAB PO SCH (08:26)
[2017-10-17] MEDS: ALPRAZolam 0.25 MG TAB PO PRN (08:27)
[2017-10-17] MEDS: Famotidine 20 MG TAB PO SCH (08:29)
[2017-10-17] MEDS: guaiFENesin ER 600 MG TAB PO SCH (08:29)
[2017-10-17] MEDS: Fluticasone Propionate Nasal Spray 16 gm Bottle NASAL SCH (08:29)
[2017-10-17] MEDS: Enoxaparin Sodium 40 MG/0.4 ML SYRINGE SC SCH (08:29)
--- NOTE | 2017-10-17 14:20 | DIS ---
DATE OF DISCHARGE: 10/17/2017 DISCHARGE DISPOSITION: Home. FOLLOWUP: Follow up with primary care physician, Dr. Tony Ham in 1 week. Follow up with Dr. Ramesh Hereida in 2-3 weeks. DISCHARGE MEDICATIONS: 1. Prednisone 10 mg daily. 2. Xanax 0.25 mg twice daily as needed, #10. 3. Mucinex as needed. 4. Nebulizer treatments every 4 hourly as needed. 5. Levaquin 500 mg daily for the next 2 days. All other home medications were resumed. BRIEF HOSPITAL COURSE: The patient is a 51-year-old female with COPD and multiple allergies, present ed to the hospital with shortness of breath. Her workup was consistent with acute hypoxic respirator y failure secondary to asthmatic bronchitis. Please refer to the history and physical for further de tails. The patient was admitted to the telemetry unit with the above diagnosis. A CT angiogram of the chest was negative for pulmonary embolism. It showed patchy ground glass opacity as well as a focal conso lidation throughout the lung parenchyma. The patient was seen by Pulmonary, Dr. Heredia. She showed g ood improvement with nebulizer treatment and antibiotic. She intermittently received steroids per Pu lmonary. She had some anxiety reaction after steroids that improved with a low dose Xanax. The anahi ent has been cleared by Pulmonary for discharge. FINAL DIAGNOSES: 1. Acute hypoxic respiratory failure. 2. Asthmatic bronchitis with suspected pneumonia. 3. History of chronic obstructive pulmonary disease per patient report. 4. Hypokalemia, replaced. 5. Anxiety. 6. Former smoker. 7. Multiple drug allergies. 8. Significant labs; PATY negative, ANCA negative, anti-double stranded DNA negative. HIV testing ne chayo. The plan of care was discussed with the patient in detail. She stated understanding.
[2017-10-17 15:12] VITALS: BP 112/79; TEMP 98.8
--- NOTE | 2017-10-17 18:10 | PRG ---
DATE OF SERVICE: 10/17/2017 SUBJECTIVE: Ms. Patiño continues to have mood swings. the Medrol injection had adequate chance to kick in. She says she was climbing the wall last night. She was very tearful when I saw her tod ay in the room. OBJECTIVE: VITAL SIGNS: She is afebrile, heart rate is 82, respiratory rate is 18, oximetry is 92 on room air, blood pressure 112/79. LUNGS: Clear today. HEART: Regular rhythm. ABDOMEN: Soft. IMPRESSION AND PLAN: I will send her home on 10 mg a day of prednisone. I have explained to her luz t it is her adrenal output is and should not aggravate her mood. She should go home with a neb ulizer and DuoNeb to use 4 times a day. She was instructed not to smoke. She wanted me to prescribe Xanax and that will be up to her primary care physician. I will be happy to see her in 3-4 weeks. She should follow up with her primary care physician, Dr. Emilie mancini in 1-2 weeks.
[2017-10-18 10:28] LABS: Aspergillus fumigatus Negative (Negative); Aureobasidium pullalans IgG Negative (Negative); Micropolyspora faeni Negative (Negative); Pigeon Droppings IgG Negative (Negative); T sacchari Negative (Negative); T vulgaris Negative (Negative)
== END 2017-10-17 15:25 | disposition home or self-care (01) | DRG 190 ==
LOC: ERS 16:14 → 2NO 18:54 → T4-A 10-14 21:53
PROVIDERS: ADMIT Family Medicine; ATTEND Family Medicine
DX: J44.1 Chronic obstructive pulmonary disease with (acute) exacerbation (principal); J18.9 Pneumonia, unspecified organism; J96.01 Acute respiratory failure with hypoxia; J45.901 Unspecified asthma with (acute) exacerbation; J44.0 Chronic obstructive pulmonary disease with (acute) lower respiratory infection; E87.6 Hypokalemia; F41.9 Anxiety disorder, unspecified; J01.90 Acute sinusitis, unspecified; Z87.891 Personal history of nicotine dependence
CPT/HCPCS: 36415; 71275; 80048; 83520; 83735; 83880; 85025; 86038; 86225; 86256; 86331; 86602; 86606; 86671; 87070; 87205; 87389; 93005; 94640; 94664; 96360; A4216; G8978-GP-CK; G8979-GP-CJ; G8987-GO-CL; G8988-GO-CI; J0456; J1650; J1956; J2930; J3475; J7050; J7506; J7611; J7620; J7626; S0028

== ENCOUNTER 2017-11-27 12:31 | Outpatient (CLI) | payer MEDICARE ==
--- NOTE | 2017-11-27 14:27 | RAD ---
CHEST TWO VIEWS: History: Dyspnea. FINDINGS: Cardiac silhouette and pulmonary vasculature are unremarkable. Mediastinum is midline. No confluent a irspace consolidation, pneumothorax or pleural fluid. IMPRESSION: No active cardiopulmonary abnormalities are demonstrated. POS: [facility]
== END 2017-11-27 12:32 | disposition home or self-care (01) ==
LOC: RAD 12:31
PROVIDERS: ATTEND Internal Medicine Critical Care Medicine
DX: R06.00 Dyspnea, unspecified (principal)
CPT/HCPCS: 71046

== ENCOUNTER 2018-01-08 13:26 | Outpatient (CLI) | payer MEDICARE ==
--- NOTE | 2018-01-08 17:11 | MRI ---
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 Low back pain, radiati ng down to the legs, for multiple years. COMPARISON: None. FINDINGS: The aortic contour is nonaneurysmal. No retroperitoneal adenopathy. No marrow infiltrative process. There is stress edema in the pars interarticularis and in the inferi or articular facet of L4 and the superior articular facet of L5. There is anterolisthesis of L4/L5, approximately 4 mm. The conus medullaris terminates near the superior endplate of L1. Levels are as follows: T12-L1: No disks. No neural foramina or spinal canal narrowing. L1-L2: Normal disks. No neural foramina or spinal canal narrowing. Mild facet arthropathy. L2-L3: Mild disk desiccation. Modic type 2 endplate changes. There is a small broad-based posterio r disk osteophyte complex causing moderate bilateral neural foraminal narrowing. The spinal canal me asures approximately 8 mm. L3-L4: Mild disk desiccation posteriorly. Small bilateral subforaminal posterior disk osteophyte co mplexes. Moderate facet arthropathy. Mild left and moderate right-sided neural foraminal narrowing. L4-L5: There is anterolisthesis, approximately 5 mm. Superior facet arthropathy. The spinal canal measures approximately 8 mm. Moderate bilateral neural foraminal narrowing. L5-S1: Moderate disk desiccation. There is a central annular fissure. Circumferential disk osteoph yte complex. Moderate facet arthropathy. Moderate bilateral neural foraminal narrowing. IMPRESSION: 1. Multilevel spondylosis, as described above. 2. Anterolisthesis of L4/L5, grade 1, with stress edema to the posterior elements. POS: [facility]
== END 2018-01-08 13:27 | disposition home or self-care (01) ==
LOC: SCSMRI 13:26
PROVIDERS: ATTEND Specialist
DX: M51.16 Intervertebral disc disorders with radiculopathy, lumbar region (principal); M47.26 Other spondylosis with radiculopathy, lumbar region; M43.16 Spondylolisthesis, lumbar region; R60.0 Localized edema
CPT/HCPCS: 72148

== ENCOUNTER 2018-08-05 13:09 | Outpatient (CLI) | payer MEDICARE ==
--- NOTE | 2018-08-05 13:52 | RAD ---
EXAM: Left hip: 2 views INDICATIONS: Hip pain COMPARISON: None. FINDINGS: Femoral head contour is normal. No evidence of fracture. No osseous abnormality identified. IMPRESSION: No acute finding
--- NOTE | 2018-08-05 13:53 | RAD ---
EXAM: Left knee: 4 views INDICATIONS: Knee pain COMPARISON: None. FINDINGS: Joint spaces are maintained. No significant degenerative change. No evidence of joint effus ion. No osseous abnormality. IMPRESSION: No acute finding
--- NOTE | 2018-08-05 13:56 | RAD ---
EXAM: Right knee: 4 views INDICATIONS: Knee pain COMPARISON: 07/26/2017 FINDINGS: Osteopenia. Moderate degenerative changes with spurring from the condyles and patella. Slig ht medial subluxation of femur, stable in appearance. Evidence of prior hardware in the proximal tibia, stable in appearance no significant joint effusion. IMPRESSION: Moderate degenerative changes which appear stable from prior exam.
== END 2018-08-05 13:10 | disposition home or self-care (01) ==
LOC: SCSRAD 13:09
DX: M25.561 Pain in right knee (principal); M25.562 Pain in left knee; M25.552 Pain in left hip; M17.11 Unilateral primary osteoarthritis, right knee